=== PATIENT | male | born 1940 | race Caucasian/White ===

== ENCOUNTER 2017-10-02 06:50 | Day surgery (SDC) | payer MEDICARE, BC ==
[~2017-10-02 06:50] MED LIST: RINGER'S SOLUTION,LACTATED 1,000 ML IV PRN
[2017-10-02] MEDS ORDERED: RINGER'S SOLUTION,LACTATED 1,000 ML IV ONE (07:17)
[2017-10-02] MEDS ORDERED: RINGER'S SOLUTION,LACTATED 1,000 ML IV PRN (08:11)
[2017-10-02 09:10] VITALS: BP 131/75
--- NOTE | 2017-10-02 18:09 | OR ---
Operative Report - Dictated Report Narrative: OPERATIVE REPORT DATE OF OPERATION: 10/02/2017 PREOPERATIVE DIAGNOSIS: No recent dedicated colon studies POSTOPERATIVE DIAGNOSIS: 3 mm area of polypoid change at 20 cm (pathology pending). Significant sigmoid diverticulosis OPERATION: Colonoscopy SURGEON: Evan Sneed MD ANESTHESIA: SARAH Thorne CRNA INDICATIONS FOR PROCEDURE: The patient is a 77-year-old male referred by Dr. Solano. The patient had a hyperplastic polyp at 20 cm removed in 2004 and a hyperplastic polyp removed from the transverse colon in 2006. There is no family history of colon cancer. The patient currently uses Benefiber but has occasional constipation FINDINGS: 3 mm area of polypoid change at 20 cm (pathology pending). Moderate to severe sigmoid diverticulosis. NARRATIVE OF PROCEDURE: The patient was identified in the holding area, and prior to the administration of anesthetic, a multidisciplinary timeout was observed. With the patient in the left lateral position and after the administration of intravenous sedation, the perineum was inspected. There was no evidence of pilonidal disease or skin breakdown. The external appearance of the anus was normal. Sphincter tone was good. The flexible fiberoptic colonoscope was inserted into the rectum which was insufflated with air. The rectal mucosa and submucosal vascular pattern appeared normal, the prep was seen to be complete. The scope was advanced through the sigmoid colon, where at 20 cm a 3 mm area of polypoid change was encountered. This was biopsied and then thoroughly destroyed with electrocautery. The site was seen to be complete and hemostatic. The scope was advanced further through the sigmoid colon which contained innumerable large noninflamed diverticular openings some of which were impacted with stool. The scope was advanced up the descending colon, and around the splenic flexure where the triangular haustral architecture of the transverse colon was seen. The scope was advanced across the transverse colon, around the hepatic flexure to the cecum, where the confluence of tenia and the ileocecal valve were identified. The mucosa at this level appeared normal. The scope was then slowly withdrawn in a circular fashion so that all aspects of colonic mucosa were inspected. The proximal colon was somewhat capacious and character but overall normal in course. The haustral architecture appeared well preserved throughout with no evidence of external compression. The mucosa and submucosal vascular pattern appeared normal, specifically there was no gross evidence to suggest colitis or inflammatory bowel disease and no AV malformations were seen. The diverticulosis was moderate to severe in degree and confined primarily to the sigmoid colon. No polyps proximal to 20 cm were encountered. The scope was gradually withdrawn to the level of the rectum. As much insufflated air as possible was removed. The scope was withdrawn from the patient and the procedure terminated. The patient tolerated the anesthetic and procedure well without complication and was transferred back to the ambulatory surgery area awake and in stable condition. The patient remained stable throughout a period of postoperative observation. He denied abdominal discomfort, was able to tolerate by mouth intake, and was up without assistance. I shared the operative findings with the patient and he was given copies of the photographs which appear in the medical record. He was discharged home with instructions not to engage in hazardous activity today, but may resume normal activity tomorrow, and advance diet as tolerated. He is to continue those medications as listed in the history and physical exam. I made arrangements to contact him with the biopsy report and will make additional recommendations for treatment and follow-up based upon those results. A pamphlet on diverticular disease was reviewed with him and his and given to them for reference. He was also given 2 sheets on high fiber diet and advised to continue Benefiber/MiraLAX as needed. Reviewed and electronically signed
== END 2017-10-02 06:51 | disposition home or self-care (01) ==
LOC: AMB 06:50
PROVIDERS: ATTEND Surgery
PROC: 0DBN8ZX Excision of Sigmoid Colon, Via Natural or Artificial Opening Endoscopic, Diagnostic (ICD-10-PCS; principal; 2017-10-02 07:45)
DX: Z12.11 Encounter for screening for malignant neoplasm of colon (principal); K63.5 Polyp of colon; K57.30 Diverticulosis of large intestine without perforation or abscess without bleeding; I10 Essential (primary) hypertension; K21.9 Gastro-esophageal reflux disease without esophagitis; Z87.891 Personal history of nicotine dependence; Z68.33 Body mass index [BMI] 33.0-33.9, adult